=== PATIENT | male | born 1945 | race Caucasian/White ===

== ENCOUNTER 2020-04-27 09:14 | Emergency (ER) | payer MEDICARE, OTHER ==
[2020-04-27 10:15] LABS: #Eosinphils 0.2 thou/uL (0.0-0.7); #Lymphocytes 1.2 thou/uL (1.20-3.40); #Monocytes 0.7 thou/uL (0.11-0.59); #Neutrophils 4.2 thou/uL (1.40-6.50); %Basophils 0.3 % (0.0-1.0); %Eosinophils 3.6 % (0.0-10.0); %Lymphocytes 18.8 % (21.0-51.0); %Monocytes 10.7 % (0.0-10.0); %Neutrophils 66.6 % (42.0-75.0); Hemoglobin 13.6 g/dL (14.0-18.0); Mean Corpuscular HGB CONC 30.7 g/dL (32.0-36.0); Mean Corpuscular Hemoglobin 30.4 pg (27.0-31.0); Mean Platelet Volume 8.5 fL (7.4-10.4); Platelet Count 217 thou/uL (130-400); RBC Distribution Width 11.8 % (11.5-14.5); Red Blood Cell (RBC) Count 4.49 mill/uL (4.70-6.10); White Blood Cell (WBC) Count 6.3 thou/uL (4.8-10.8)
[2020-04-27 10:38] LABS: ALT (SGPT) 13 U/L (8-55); AST (SGOT) 18 U/L (5-34); Albumin 3.8 g/dL (3.4-4.8); Alkaline Phosphatase 70 U/L (40-110); Anion Gap 11 mmol/L (10-20); BUN (Urea Nitrogen) 10 mg/dL (8.4-25.7); Bilirubin, Total 0.4 mg/dL (0.2-1.2); Calc. Creatinine Clearance 0 mL/min (70-130); Carbon Dioxide 24 mmol/L (23-31); Chloride 107 mmol/L (98-107); Estimated GFR-MDRD 64; Glucose 89 mg/dL (83-110); Potassium 4.3 mmol/L (3.5-5.1); Protein, Total 6.8 g/dL (5.8-8.1); Sodium 138 mmol/L (136-145)
--- NOTE | 2020-04-27 10:50 | RAD ---
PORTABLE CHEST 1 VIEW: Date: 04/27/2020 Time: 1014 hours HISTORY: Chest pain. COMPARISON: 12/23/2018. FINDINGS: The heart size is normal. The aorta is tortuous. The lungs are well expanded without focal areas of c onsolidation, pneumothoraces, or pleural effusions. IMPRESSION: No radiographic evidence of acute cardiopulmonary process. POS: AH
[2020-04-28 12:44] LABS: SARS-CoV-2 MS2 Positive; SARS-CoV-2 N Gene Negative; SARS-CoV-2 S Gene Negative; SARS-CoV-2 by NAA Not Detected (NotDetected); SARS-CoV-2 orf1ab Negative
--- NOTE | 2020-05-19 13:48 | EKG ---
Test Reason : Blood Pressure : / mmHG Vent. Rate : 055 BPM Atrial Rate : 055 BPM P-R Int : 196 ms QRS Dur : 110 ms QT Int : 422 ms P-R-T Axes : 053 -50 007 degrees QTc Int : 403 ms Sinus bradycardia Low voltage QRS Left anterior fascicular block Abnormal ECG Confirmed by HANNAH YOUNG, STEVE Riddle ([id number]), assignment editor STU RIDLEY ([id number]) on 05/19/2020 1:47:36 PM Referred By: Confirmed By:STEVE YOUNG MD
== END 2020-04-27 12:38 | disposition short-term general hospital (02) ==
LOC: ERS 09:14
DX: R07.9 Chest pain, unspecified (principal); I25.2 Old myocardial infarction; E78.5 Hyperlipidemia, unspecified; Z87.891 Personal history of nicotine dependence; Z79.899 Other long term (current) drug therapy; Z20.828 Contact with and (suspected) exposure to other viral communicable diseases
CPT/HCPCS: 71045; 80053; 83880; 84484; 85025; 93005 ×2; 99285; G0463; U0003; 36415; 87635; 99215

== ENCOUNTER 2022-10-07 10:01 | Outpatient (CLI) | payer MEDICARE, OTHER | END 2022-10-07 10:02 | disposition home or self-care (01) | LOC: SCSRAD 10:01 | PROVIDERS: ATTEND Surgery | DX: S22.080D Wedge compression fracture of T11-T12 vertebra, subsequent encounter for fracture with routine healing (principal) | CPT/HCPCS: 72100 ==

== ENCOUNTER 2022-11-20 10:47 | Outpatient (CLI) | payer MEDICARE, OTHER | END 2022-11-20 10:48 | disposition home or self-care (01) | LOC: SCSRAD 10:47 | PROVIDERS: ATTEND Surgery | DX: S22.080D Wedge compression fracture of T11-T12 vertebra, subsequent encounter for fracture with routine healing (principal); M48.062 Spinal stenosis, lumbar region with neurogenic claudication; M43.8X4 Other specified deforming dorsopathies, thoracic region | CPT/HCPCS: 72100 ==

== ENCOUNTER 2023-05-18 15:26 | Outpatient (CLI) | payer MEDICARE | END 2023-05-18 15:27 | disposition home or self-care (01) | LOC: RAD 15:26 | PROVIDERS: ATTEND Nurse Practitioner Family | DX: M54.50 Low back pain, unspecified (principal) | CPT/HCPCS: 72100 ==